=== PATIENT | female | born 1985 | race Caucasian/White ===

== ENCOUNTER 2017-04-20 11:58 | Emergency (ER) | payer BC, MEDICAID ==
--- NOTE | 2017-04-20 12:24 | ER Document Report ---
ED Medical Screen (RME) - General Chief Complaint: Dizziness Stated Complaint: DIZZY Time Seen by Provider: 04/20/17 12:22 Notes: Patient complains of severe vertigo both with lying and standing. She states it is worse with walking. She states she has had this on and off for several years but is never had any workup performed for it. TRAVEL OUTSIDE OF THE [place] IN LAST 30 DAYS: No - Related Data Allergies/Adverse Reactions: amoxicillin trihydrate [From Augmentin] Allergy (Severe, Verified 04/20/17 12:01 ) rash erythromycin base [Erythromycin Base] Allergy (Severe, Verified 04/20/17 12:01) breathing latex [Latex] Allergy (Severe, Verified 04/20/17 12:01) rash Past Medical History - Social History Drug Abuse: None - Past Medical History Cardiac Medical History: Denies: Hx Coronary Artery Disease, Hx Heart Attack, Hx Hypertension Pulmonary Medical History: Reports: Hx Asthma - INDUCED BY SPORTS, Hx Bronchitis Denies: Hx COPD, Hx Pneumonia Neurological Medical History: Denies: Hx Cerebrovascular Accident, Hx Seizures Endocrine Medical History: Comment Only: Hx Diabetes Mellitus Type 2 - Gestational diabetes Renal/ Medical History: Reports: Hx Ectopic - 2015, Hx Pelvic Inflammatory Disease. Denies: Hx Peritoneal Dialysis Musculoskeltal Medical History: Denies Hx Arthritis Past Surgical History: Reports: Hx Section - x2, Hx Tubal Ligation - 2009. Denies: Hx Hysterectomy, Hx Pacemaker - Immunizations Hx Diphtheria, Pertussis, Tetanus Vaccination: No Physical Exam - Vital signs Vitals: Temp Pulse Resp BP Pulse Ox 98.4 F 86 14 121/91 H 100 04/20/17 12:05 04/20/17 12:05 04/20/17 12:05 04/20/17 12:05 04/20/17 12:05 Course - Vital Signs Vital signs: Temp Pulse Resp BP Pulse Ox 98.4 F 86 14 121/91 H 100 04/20/17 12:05 04/20/17 12:05 04/20/17 12:05 04/20/17 12:05 04/20/17 12:05
--- NOTE | 2017-04-20 13:00 | RADIOLOGY REPORT (SQ) ---
EXAM DESCRIPTION: CT HEAD WITHOUT COMPLETED DATE/TIME: 04/20/2017 12:36 pm REASON FOR STUDY: severe vertigo COMPARISON: None. TECHNIQUE: Axial images acquired through the brain without intravenous contrast. Images reviewed wi th bone, brain and subdural windows. Images stored on PACS. All CT scanners at this facility use dose modulation, iterative reconstruction, and/or weight based d osing when appropriate to reduce radiation dose to as low as reasonably achievable (ALARA). [facility]: Dose Right [facility]: CareDose [facility]: Dose Right [facility]: Teradose 4D [facility]: [employer] RADIATION DOSE: CT Rad equipment meets quality standard of care and radiation dose reduction techniq ues were employed. CTDIvol: 64.6 mGy. DLP: 1163 mGy-cm. mGy. LIMITATIONS: None. FINDINGS: VENTRICLES: Normal size and contour. CEREBRUM: No masses. No hemorrhage. No midline shift. No evidence for acute infarction. Normal gra y/white matter differentiation. No areas of low density in the white matter. CEREBELLUM: No masses. No hemorrhage. No alteration of density. No evidence for acute infarction. EXTRAAXIAL SPACES: No fluid collections. No masses. ORBITS AND GLOBE: No intra- or extraconal masses. Normal contour of globe without masses. CALVARIUM: No fracture. PARANASAL SINUSES: No fluid or mucosal thickening. SOFT TISSUES: No mass or hematoma. OTHER: No other significant finding. IMPRESSION: NORMAL BRAIN CT WITHOUT CONTRAST. EVIDENCE OF ACUTE STROKE: NO. COMMENT: Quality ID # [id number]: Final reports with documentation of one or more dose reduction techniques (e.g., Automated exposure control, adjustment of the mA and/or kV according to patient size, use of iterative reconstruction technique) TECHNICAL DOCUMENTATION: JOB ID: [id number] [employer]- All Rights Reserved
[2017-04-20 13:13] LABS: ABSOLUTE BASOPHILS # (AUTO) 0.1 10^3/uL (0.0-0.2); ABSOLUTE EOSINOPHILS # (AUTO) 0.4 10^3/uL (0.0-0.6); ABSOLUTE MONOCYTES (AUTO) 0.3 10^3/uL (0.1-1.4); ABSOLUTE NEUT (AUTO) 4.6 10^3/uL (1.7-8.2); BASOPHILS % (AUTO) 0.7 % (0-2); EOSINOPHILS % (AUTO) 5.6 % (0-6); HEMOGLOBIN 15.3 g/dL (12.0-15.5); HGB HCT DIFFERENCE 1.9; LYMPHOCYTES % (AUTO) 27.1 % (13-45); MEAN CORPUSCULAR HEMOGLOBIN 29.4 pg (27.0-33.4); MEAN CORPUSCULAR HGB CONC 34.7 g/dL (32.0-36.0); MEAN CORPUSCULAR VOLUME 85 fl (80-97); MONOCYTES % (AUTO) 4.6 % (3-13); RED CELL DISTRIBUTION WIDTH 13.6 % (11.5-14.0); WHITE BLOOD COUNT 7.3 10^3/uL (4.0-10.5)
[2017-04-20 13:19] LABS: APPEARANCE,URINE CLEAR; BILIRUBIN,URINE NEGATIVE (NEGATIVE); GLUCOSE, URINE NEGATIVE (NEGATIVE); KETONES,URINE NEGATIVE (NEGATIVE); LEUKOCYTE ESTERASE,URINE NEGATIVE (NEGATIVE); NITRITE,URINE NEGATIVE (NEGATIVE); PROTEIN,URINE NEGATIVE (NEGATIVE); URINE SPECIFIC GRAVITY 1.003; UROBILINOGEN,URINE NEGATIVE mg/dL (<2.0)
[2017-04-20 13:37] LABS: ALANINE AMINOTRANSFERASE 29 U/L (9-52); ALBUMIN 4.9 g/dL (3.5-5.0); ALKALINE PHOSPHATASE 69 U/L (38-126); ANION GAP 15 (5-19); ASPARTATE AMINO TRANSFERASE 21 U/L (14-36); BILIRUBIN,DIRECT 0.2 mg/dL (0.0-0.4); BILIRUBIN,TOTAL 0.5 mg/dL (0.2-1.3); BLOOD UREA NITROGEN 9 mg/dL (7-20); CALCIUM 9.4 mg/dL (8.4-10.2); CARBON DIOXIDE 27 mmol/L (22-30); CHLORIDE 102 mmol/L (98-107); CREATININE RESULT 0.77 mg/dL (0.52-1.25); GLUCOSE 128 mg/dL (75-110); POTASSIUM 3.6 mmol/L (3.6-5.0); SODIUM 143.5 mmol/L (137-145)
[2017-04-20] MEDS ORDERED: ONDANSETRON ODT 4 MG TAB (6 TAB/DSPK) PO PRN (15:06)
[2017-04-20] MEDS ORDERED: MECLIZINE HCL 25 MG TABLET PO ONE (15:06)
--- NOTE | 2017-04-20 15:13 | ER Document Report ---
ED Dizziness/Weakness - General Chief Complaint: Dizziness Stated Complaint: DIZZY Time Seen by Provider: 04/20/17 12:22 Mode of Arrival: Ambulatory Information source: Patient TRAVEL OUTSIDE OF THE [place] IN LAST 30 DAYS: No - HPI Patient complains to provider of: Dizziness Onset: Other - 3 days Onset/Duration: Intermittent Quality of pain: No pain Severity: Mild Pain Level: 1 Context: Vertigo Associated symptoms: Dizzy. denies: Chest pain, Confused, Diarrhea, Ear pain, Almost fainted, Less responsive, Lightheaded, Loss of motor function, Loss of sensation, Nausea, Palpitations, Ringing/roaring in ear, Short of breath, Sleeping more, Sweating, Vertigo, Vomiting, Weak all over Exacerbated by: Change in position Baseline gait: Walks w/o assistance Notes: lmp x 5 days ago. denies any tingling down bilateral upper and lower extremities. Denies any trauma. Denies any chest pain, shortness of breath, vomiting, diarrhea, abdominal pain, pelvic pain. Denies any seizures. Reports recent URI that has become progressively better. 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 Lives with: Family, Spouse/Significant other Family History: Reviewed & Not Pertinent, Hypertension Patient has suicidal ideation: No Patient has homicidal ideation: No - Past Medical History Cardiac Medical History: Reports: None Denies: Hx Coronary Artery Disease, Hx Heart Attack, Hx Hypertension Pulmonary Medical History: Reports: Hx Asthma - INDUCED BY SPORTS, Hx Bronchitis Denies: Hx COPD, Hx Pneumonia Neurological Medical History: Denies: Hx Cerebrovascular Accident, Hx Seizures Endocrine Medical History: Comment Only: Hx Diabetes Mellitus Type 2 - Gestational diabetes Renal/ Medical History: Reports: Hx Ectopic - 2015, Hx Pelvic Inflammatory Disease. Denies: Hx Peritoneal Dialysis Musculoskeltal Medical History: Denies Hx Arthritis Past Surgical History: Reports: Hx Section - x2, Hx Tubal Ligation. Denies: Hx Hysterectomy, Hx Pacemaker - Immunizations Hx Diphtheria, Pertussis, Tetanus Vaccination: No Review of Systems - Review of Systems Constitutional: See HPI EENT: No symptoms reported Cardiovascular: No symptoms reported Respiratory: No symptoms reported Gastrointestinal: No symptoms reported Genitourinary: No symptoms reported Female Genitourinary: No symptoms reported Musculoskeletal: No symptoms reported Skin: No symptoms reported -: Yes All other systems reviewed and negative Physical Exam - Vital signs Vitals: Temp Pulse Resp BP Pulse Ox 98.4 F 86 14 121/91 H 100 04/20/17 12:05 04/20/17 12:05 04/20/17 12:05 04/20/17 12:05 04/20/17 12:05 Interpretation: Normal - General General appearance: Appears well - HEENT Head: Normocephalic Conjunctiva: Normal Cornea: Normal Pupils: PERRL Ears: Normal External canal: Normal Tympanic membrane: Bulging Sinus: Normal Nasal: Other - boggy turbinates Mouth/Lips: Normal Mucous membranes: Normal Pharynx: Normal Neck: Normal - Respiratory Respiratory status: No respiratory distress Chest status: Nontender Breath sounds: Normal Chest palpation: Normal - Cardiovascular Rhythm: Regular Heart sounds: Normal auscultation Murmur: No Normal capillary refill: Yes - Abdominal Inspection: Normal Distension: No distension Bowel sounds: Normal Tenderness: Nontender Organomegaly: No organomegaly - Neurological Neuro grossly intact: Yes Cognition: Normal Orientation: AAOx4 Joshua Coma Scale Eye Opening: Spontaneous Thornton Coma Scale Verbal: Oriented Thornton Coma Scale Motor: Obeys Commands Joshua Coma Scale Total: 15 Speech: Normal Cranial nerves: Normal Cerebellar coordination: Normal Additional motor exam normals: 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 + horizontal nystagmus Course - Re-evaluation Re-evalutation: After performing a Medical Screening Examination, I estimate there is LOW risk for INTRACRANIAL HEMORRHAGE, ISCHEMIC CVA, MALIGNANT DYSRHYTHMIA, ACUTE CORONARY SYNDROME, MENINGITIS, PULMONARY EMBOLISM, or SEPSIS thus I consider the discharge disposition reasonable. I have reevaluated this patient multiple times and no significant life threatening changes are noted. The patient and I have discussed the diagnosis and risks, and we agree with discharging home with close follow-up with the understanding that symptoms and presentations can change. We also discussed returning to the Emergency Department immediately if new or worsening symptoms occur. We have discussed the symptoms which are most concerning (e.g., changing or worsening pain, weakness, vomiting, fever) that necessitate immediate return. - Vital Signs Vital signs: Temp Pulse Resp BP Pulse Ox 98.4 F 80 17 110/80 99 04/20/17 12:05 04/20/17 15:33 04/20/17 14:31 04/20/17 15:33 04/20/17 14:31 - Laboratory Result Diagrams: 04/20/17 12:54 04/20/17 12:54 Laboratory results interpreted by me: 04/20/17 12:54 Glucose 128 H - Diagnostic Test Radiology reviewed: Reports reviewed - CT head, NAD per rad - EKG Interpretation by Me EKG shows normal: Sinus rhythm Rate: Normal Rhythm: NSR Discharge - Discharge Clinical Impression: Benign positional vertigo Qualifiers: Laterality: bilateral Qualified Code(s): H81.13 - Benign paroxysmal vertigo, bilateral Clinical Impression: (Ruled Out): Vertigo due to cerebrovascular disease Disposition: HOME, SELF-CARE Instructions: Antinausea Medication ([facility]), Dizziness ([facility]), Meclizine ([facility]), Vertigo ([facility]) Additional Instructions: take medications as directed follow up with pcp within 24 hours increase oral fluids return to ER if signs and symptoms worsen Prescriptions: Meclizine HCl 25 mg PO Q12H #9 tab.chew Ondansetron [Zofran Odt 4 mg Tablet] 4 mg PO Q12H PRN #10 tab.rapdis PRN Reason: Forms: Return to Work
[2017-04-20 15:34] VITALS: BP 110/80
--- NOTE | 2017-04-20 19:49 | EKG REPORT ---
SEVERITY:- NORMAL ECG - SINUS RHYTHM : Confirmed by: Grey Tidwell MD 20-Apr-2017 19:48:33
== END 2017-04-20 15:50 | disposition home or self-care (01) ==
LOC: ER 11:58
DX: H81.13 Benign paroxysmal vertigo, bilateral (principal); Z91.040 Latex allergy status; Z88.0 Allergy status to penicillin; Z88.3 Allergy status to other anti-infective agents; Z98.51 Tubal ligation status
CPT/HCPCS: 36415; 70450; 80053; 81001; 81025; 85025; 93005; 93010; 99284

== ENCOUNTER 2019-10-26 15:55 | Outpatient (CLI) | payer BC, MEDICAID ==
[2019-10-26 17:05] LABS: APPEARANCE,URINE CLEAR; BILIRUBIN,URINE NEGATIVE (NEGATIVE); COLOR,URINE STRAW; GLUCOSE, URINE NEGATIVE (NEGATIVE); KETONES,URINE NEGATIVE (NEGATIVE); LEUKOCYTE ESTERASE,URINE NEGATIVE (NEGATIVE); NITRITE,URINE NEGATIVE (NEGATIVE); PROTEIN,URINE NEGATIVE (NEGATIVE); URINE SPECIFIC GRAVITY 1.008; UROBILINOGEN,URINE NEGATIVE mg/dL (<2.0)
[2019-10-26 17:21] LABS: URINE AMPHETAMINES SCREEN NEGATIVE; URINE BARBITURATES SCREEN NEGATIVE; URINE BENZODIAZEPINES SCREEN NEGATIVE; URINE COCAINE SCREEN NEGATIVE; URINE MARIJUANA (THC) SCREEN NEGATIVE; URINE METHADONE SCREEN NEGATIVE; URINE PHENCYCLIDINE SCREEN NEGATIVE
[2019-10-26 17:24] LABS: BACTERIA (WET MOUNT) 4+ BACTERIA SEEN; EPITHELIALS (WET MOUNT) 4+ EPITHELIALS SEEN; RBCS (WET MOUNT) 1+ RBCS SEEN; WBCS (WET MOUNT) 2+ WBCS SEEN; YEAST (WET MOUNT) BUDDING YEAST SEEN
--- NOTE | 2019-10-26 17:46 | RADIOLOGY REPORT (SQ) ---
EXAM DESCRIPTION: U/S OB LIMITED IMAGES COMPLETED DATE/TIME: 10/26/2019 5:32 pm REASON FOR STUDY: 24wga with cramping and spotting COMPARISON: None. TECHNIQUE: Limited transabdominal grayscale ultrasound for evaluation of specific requested obstetri fiona parameters. LIMITATIONS: None. FINDINGS: CERVICAL LENGTH: 3.5 cm. Closed. FINN: 15.2 cm. FHR: 144 beats per minute. PRESENTATION: Breech PLACENTA: Anterior ANATOMY: Not assessed OTHER: Gestation by ultrasound of 27 weeks 6 days. IMPRESSION: LIMITED OBSTETRICAL ULTRASOUND WITH MEASURED PARAMETERS DELINEATED ABOVE. Trimester of : Second trimester - 13 weeks 1 day to 27 weeks 6 days. TECHNICAL DOCUMENTATION: JOB ID: [id number] 2010 [email or web address]- All Rights Reserved Reading location - IP/workstation name: [email or web address]
[2019-10-26 19:02] LABS: CHLAM PCR NOT DETECTED (NOT DETECT)
[2019-10-26] MEDS ORDERED: FLUCONAZOLE 100 MG TABLET ONE (19:09)
[2019-10-27] MEDS ORDERED: FLUCONAZOLE 100 MG TABLET PO ONE (10:00)
== END 2019-10-26 19:28 | disposition home or self-care (01) ==
LOC: LC 15:55
PROVIDERS: ATTEND Student in an Organized Health Care Education/Training Program
DX: O26.852 Spotting complicating pregnancy, second trimester (principal); O26.892 Other specified pregnancy related conditions, second trimester; R10.9 Unspecified abdominal pain; Z3A.27 27 weeks gestation of pregnancy
CPT/HCPCS: 76815; 80307; 81001; 87210; 87491; 87591

== ENCOUNTER 2019-12-12 09:29 | Outpatient (CLI) | payer BC, MEDICAID ==
--- NOTE | 2019-12-12 10:08 | Non Stress Test Report ---
Non Stress Test Datetime Report Generated by CPN: 12/12/2019 10:08 DEMOGRAPHIC EGA NST: 34.4 VITAL SIGNS Temperature - NST: 98.9 Pulse - NST: 109 RESP - NST: 16 NBPSYS NST: 122 NBPDIA NST: 71 MONITORING Monitor Explained: Monitor Explained; Test Explained; Patient Verbalized Understanding Time on Monitor: 12/12/2019 09:41 Time off Monitor: 12/12/2019 10:02 NST Duration: 21 NST INTERVENTIONS NST Interventions: PO Hydration; Reposition Patient Physician Notified NST: Birdie Roy, CNM BABY A: [id number] BABY A Movement : Present Contraction Frequency : 0 FHR Baseline : 155 Accelerations : 15X15 Decelerations : None Variability : Moderate 6-25bpm NST Review: Meets Criteria for Reactive NST NST Review and Verified By : JONELLE Perez Results: Reactive NST REPORT Report Trigger: Send Report
== END 2019-12-12 10:12 | disposition home or self-care (01) ==
LOC: LC 09:29
PROVIDERS: ATTEND Obstetrics & Gynecology Gynecology
DX: O36.8130 Decreased fetal movements, third trimester, not applicable or unspecified (principal); O24.419 Gestational diabetes mellitus in pregnancy, unspecified control; Z3A.34 34 weeks gestation of pregnancy; Z88.1 Allergy status to other antibiotic agents; Z91.040 Latex allergy status
CPT/HCPCS: 59025

== ENCOUNTER 2019-12-19 09:17 | Emergency (ER) | payer BC, MEDICAID ==
[2019-12-19 10:17] LABS: APPEARANCE,URINE CLEAR; BILIRUBIN,URINE NEGATIVE (NEGATIVE); COLOR,URINE COLORLESS; GLUCOSE, URINE NEGATIVE (NEGATIVE); KETONES,URINE NEGATIVE (NEGATIVE); LEUKOCYTE ESTERASE,URINE NEGATIVE (NEGATIVE); NITRITE,URINE NEGATIVE (NEGATIVE); PROTEIN,URINE NEGATIVE (NEGATIVE); URINE SPECIFIC GRAVITY 1.002; UROBILINOGEN,URINE NEGATIVE mg/dL (<2.0)
--- NOTE | 2019-12-19 12:18 | ER Document Report ---
Entered by LIBIA DENISE SCRIBE 12/19/19 1113 Acting as scribe for:CARLOS MARTINEZ MD ED General - General Chief Complaint: Abdominal Cramping Stated Complaint: FEVER,CHILLS Time Seen by Provider: 12/19/19 11:13 Primary Care Provider: ELVIN RETANA MD [ACTIVE STAFF] - Follow up as needed Mode of Arrival: Ambulatory Information source: Patient Notes: This 35.4 week old 34 year old female patient presents to the emergency department today with complaints of "low grade fevers" that she describes as hot flashes with "feeling clammy" after moving. She reports that she was at her OB doctor today and she complained of this so she was referred to her PCP. Her PCP saw her and sent her here for "the baby's heart rate spiking and high blood pressure". The huffman rate was 170 and she had pressures of 138/98. She reports that the "baby's heart rate racing" is present until she lays down for several hours. TRAVEL OUTSIDE OF THE [place] IN LAST 30 DAYS: No - Related Data Allergies/Adverse Reactions: amoxicillin trihydrate [From Augmentin] Allergy (Severe, Verified 12/14/19 09:54) rash erythromycin base [Erythromycin Base] Allergy (Severe, Verified 12/14/19 09:54) breathing latex [Latex] Allergy (Severe, Verified 12/14/19 09:54) rash Home Medications: Glipizide, Progesterone Past Medical History - General Information source: Patient - Social History Smoking Status: Never Smoker Cigarette use (# per day): No Frequency of alcohol use: None Drug Abuse: None Lives with: Family Family History: Reviewed & Not Pertinent, Hypertension Pulmonary Medical History: Reports: Hx Asthma - INDUCED BY SPORTS, Hx Bronchitis Endocrine Medical History: Reports: Hx Diabetes Mellitus Type 2 - Gestational diabetes Renal/ Medical History: Reports: Hx Ectopic - 2015, Hx Pelvic Inflammatory Disease Past Surgical History: Reports: Hx Section - x2, Hx Tubal Ligation - Immunizations Hx Diphtheria, Pertussis, Tetanus Vaccination: No Review of Systems - Review of Systems Constitutional: See HPI, Fever - "low grade fevers", hot flashes, feeling clammy with movement EENT: No symptoms reported Cardiovascular: No symptoms reported Respiratory: denies: Short of breath Gastrointestinal: denies: Nausea, Vomiting Genitourinary: No symptoms reported Female Genitourinary: See HPI, - approximately 35 weeks Musculoskeletal: No symptoms reported Skin: No symptoms reported Hematologic/Lymphatic: No symptoms reported Neurological/Psychological: No symptoms reported -: Yes All other systems reviewed and negative Physical Exam - Vital signs Vitals: Temp Pulse Resp BP Pulse Ox 99.0 F 96 18 121/82 100 12/19/19 09:28 12/19/19 09:28 12/19/19 09:28 12/19/19 09:28 12/19/19 09:28 - Notes Notes: Physical Exam: General: Alert, gravid female. HEENT: Normocephalic. Atraumatic. PERRL. Extraocular movements intact. Oropharynx clear. Neck: Supple. Non-tender. Respiratory: No respiratory distress. Clear and equal breath sounds bilaterally. Cardiovascular: Regular rate and rhythm. Abdominal: Gravid female. No distension. Normal Bowel Sounds. Back: No gross abnormalities. Extremities: Moves all four extremities. Upper extremities: Normal inspection. Normal ROM. Lower extremities: Normal inspection. No edema. Normal ROM. Neurological: Normal cognition. AAOx4. Normal speech. Psychological: Normal affect. Normal Mood. Skin: Warm. Dry. Normal color. Course - Re-evaluation Re-evalutation: 12/19/19 14:27 An OB ultrasound showed the estimated gestational age of 33 weeks 6 days, heart rate 163 bpm. Amniotic fluid index is normal at 11.5 cm. The L&D nurses came down and did a stress test and that was normal. 12/19/19 14:29 The patient was evaluated during the global COVID-19 pandemic and that diagnosis was suspected/considered upon their initial presentation. Their evaluation, treatment and testing was consistent with current guidelines for patients who present with complaints or symptoms that may be related to COVID-19. - Vital Signs Vital signs: Temp Pulse Resp BP Pulse Ox 99.0 F 96 18 121/82 100 12/19/19 09:28 12/19/19 09:28 12/19/19 09:28 12/19/19 09:28 12/19/19 09:28 - Laboratory Result Diagrams: 12/19/19 11:55 12/19/19 11:55 Laboratory results interpreted by me: 12/19/19 12/19/19 11:55 11:55 WBC 14.7 H RDW 14.9 H Absolute Neuts (auto) 11.4 H Creatinine 0.45 L Glucose 67 L Discharge - Discharge Clinical Impression: Viral syndrome, Third trimester , Encounter for laboratory testing for COVID-19 virus Condition: Stable Disposition: HOME, SELF-CARE Instructions: COVID-19 Guidance for Persons Under Investigation Additional Instructions: Viral Syndrome The physician has diagnosed a viral infection. Viruses not only cause "colds," but can cause many different symptoms including generalized aching, fever, headache, cough, diarrhea, nausea, vomiting, and fatigue. The treatment, for the most part, is simply relief of symptoms. This means that antibiotics are usually not given. Rest, fluids, pain medications and, occasionally, medication for the specific symptoms that are most bothersome will be prescribed. Use good handwashing to avoid passing the virus to others. Shared toys should be cleaned with disinfectant. Clean the toilets, sinks, and counter surfaces in bathrooms. Launder clothing in hot water. Contact the physician if you develop any new or unusual symptoms such as severe headache, stiff neck, high fever, chest pain, productive cough, or shortness of breath. You should be rechecked if you don't see marked improvement within seven to 10 days. The symptoms you described today are very suspicious for a viral syndrome. You were tested for the COVID virus, however many viral illnesses will cause these symptoms. The ultrasound was unremarkable as was the stress test. 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 You should self isolate at home until you get the COVID test results. RETURN TO THE EMERGENCY ROOM IF ANY NEW OR WORSENING SYMPTOMS. Referrals: ELVIN RETANA MD [ACTIVE STAFF] - Follow up as needed I personally performed the services described in the documentation, reviewed and edited the documentation which was dictated to the scribe in my presence, and it accurately records my words and actions.
[2019-12-19 12:27] LABS: ABSOLUTE EOSINOPHILS # (AUTO) 0.2 10^3/uL (0.0-0.6); ABSOLUTE LYMPHOCYTES (AUTO) 1.9 10^3/uL (0.5-4.7); ABSOLUTE MONOCYTES (AUTO) 1.2 10^3/uL (0.1-1.4); ABSOLUTE NEUT (AUTO) 11.4 10^3/uL (1.7-8.2); BASOPHILS % (AUTO) 0.3 % (0-2); EOSINOPHILS % (AUTO) 1.2 % (0-6); HEMATOCRIT 37.8 % (36.0-47.0); HEMOGLOBIN 13.1 g/dL (12.0-15.5); LYMPHOCYTES % (AUTO) 13.1 % (13-45); MEAN CORPUSCULAR HEMOGLOBIN 29.8 pg (27.0-33.4); MEAN CORPUSCULAR HGB CONC 34.5 g/dL (32.0-36.0); MEAN CORPUSCULAR VOLUME 86 fl (80-97); MONOCYTES % (AUTO) 7.9 % (3-13); PLATELET COUNT 305 10^3/uL (150-450); RED BLOOD COUNT 4.38 10^6/uL (3.72-5.28); RED CELL DISTRIBUTION WIDTH 14.9 % (11.5-14.0); SEGMENTED NEUTROPHILS % (AUTO) 77.5 % (42-78); TOTAL CELLS COUNTED % (AUTO) 100 %; WHITE BLOOD COUNT 14.7 10^3/uL (4.0-10.5)
[2019-12-19 12:43] LABS: ALBUMIN 3.7 g/dL (3.5-5.0); ALKALINE PHOSPHATASE 124 U/L (38-126); ANION GAP 8 (5-19); ASPARTATE AMINO TRANSFERASE 24 U/L (14-36); BILIRUBIN,TOTAL 0.5 mg/dL (0.2-1.3); BLOOD UREA NITROGEN 8 mg/dL (7-20); CALCIUM 9.3 mg/dL (8.4-10.2); CARBON DIOXIDE 23 mmol/L (22-30); CHLORIDE 106 mmol/L (98-107); POTASSIUM 3.9 mmol/L (3.6-5.0); TOTAL PROTEIN 7.1 g/dL (6.3-8.2)
[2019-12-19 12:50] LABS: GLUCOSE 67 mg/dL (75-110)
--- NOTE | 2019-12-19 13:40 | RADIOLOGY REPORT (SQ) ---
EXAM DESCRIPTION: U/S OB LIMITED IMAGES COMPLETED DATE/TIME: 12/19/2019 1:06 pm REASON FOR STUDY: COVID symptoms, increased heart rate, COMPARISON: 10/26/2019 TECHNIQUE: Limited transabdominal grayscale ultrasound for evaluation of specific requested obstetri fiona parameters. LIMITATIONS: None. FINDINGS: CERVICAL LENGTH: 3.3 cm Closed. FINN: 11.5 cm. FHR: 163 beats per minute. PRESENTATION: Cephalic. PLACENTA: Anterior location. ANATOMY: Not assessed OTHER: Estimated gestational age is 33 weeks 6 days. IMPRESSION: LIMITED OBSTETRICAL ULTRASOUND WITH MEASURED PARAMETERS DELINEATED ABOVE. Trimester of : Third trimester - 28 weeks to delivery. TECHNICAL DOCUMENTATION: JOB ID: [id number] 2010 [employer]- All Rights Reserved Reading location - IP/workstation name: [email or web address]
[2019-12-19 14:42] VITALS: BP 117/73
== END 2019-12-19 14:47 | disposition home or self-care (01) ==
LOC: ER 09:17
DX: O98.513 Other viral diseases complicating pregnancy, third trimester (principal); B34.9 Viral infection, unspecified; O24.913 Unspecified diabetes mellitus in pregnancy, third trimester; O26.893 Other specified pregnancy related conditions, third trimester; R50.9 Fever, unspecified; Z3A.35 35 weeks gestation of pregnancy; Z79.84 Long term (current) use of oral hypoglycemic drugs; Z79.899 Other long term (current) drug therapy; Z20.828 Contact with and (suspected) exposure to other viral communicable diseases; Z88.0 Allergy status to penicillin; Z88.1 Allergy status to other antibiotic agents; Z91.041 Radiographic dye allergy status
CPT/HCPCS: 99284; 59025; 36415; 87040; 85025; 87635; 80053; 81001; 76815; C9803

== ENCOUNTER 2019-12-26 09:45 | Outpatient (CLI) | payer BC, MEDICAID | END 2019-12-26 10:56 | disposition home or self-care (01) | LOC: LC 09:45 | PROVIDERS: ATTEND Obstetrics & Gynecology | DX: O26.893 Other specified pregnancy related conditions, third trimester (principal); M54.9 Dorsalgia, unspecified; Z3A.36 36 weeks gestation of pregnancy | CPT/HCPCS: 59025 ==

== ENCOUNTER 2020-01-03 18:20 | Inpatient (IN) | payer BC, MEDICAID ==
[2020-01-03 18:55] LABS: APPEARANCE,URINE CLEAR; BILIRUBIN,URINE NEGATIVE (NEGATIVE); COLOR,URINE STRAW; GLUCOSE, URINE NEGATIVE (NEGATIVE); KETONES,URINE NEGATIVE (NEGATIVE); LEUKOCYTE ESTERASE,URINE NEGATIVE (NEGATIVE); NITRITE,URINE NEGATIVE (NEGATIVE); PROTEIN,URINE NEGATIVE (NEGATIVE); URINE SPECIFIC GRAVITY 1.004; UROBILINOGEN,URINE NEGATIVE mg/dL (<2.0)
[2020-01-03] MEDS ORDERED: RINGERS SOLUTION,LACTATED 1,000 ML IV PRN ×2 (19:08→20:31)
[2020-01-03 19:14] LABS: URINE AMPHETAMINES SCREEN NEGATIVE; URINE BARBITURATES SCREEN NEGATIVE; URINE BENZODIAZEPINES SCREEN NEGATIVE; URINE COCAINE SCREEN NEGATIVE; URINE MARIJUANA (THC) SCREEN NEGATIVE; URINE METHADONE SCREEN NEGATIVE; URINE PHENCYCLIDINE SCREEN NEGATIVE
[2020-01-03] MEDS ORDERED: CITRIC ACID/SODIUM CITRATE ORAL SOLN 15 ML UDCUP PO PRN (19:27)
--- NOTE | 2020-01-03 19:32 | Admission Physical ---
Datetime Report Generated by CPN: 01/03/2020 19:31 CURRENT ADMISSION Chief Complaint: Uterine Contractions Chief Complaint Other: Contractions since 4 pm every 3-4 minutes. Painful and breathing through. Admit Impression : Term, Intrauterine ; Active Labor; Repeat Section Admit Plan: Admit to Unit; Initiate Section Protocol ALLERGIES Medication Allergies: Yes Medication Allergies: amoxicillin trihydrate/SV/rash (01/03/2020); erythromycin base/SV/breathing (01/03/2020); latex/SV/rash (01/03/2020) Latex: Latex Allergies Food Allergies: none Environmental Allergies: pollen OBSTETRICAL HISTORY EDC: 01/19/2020 00:00 : 11 Para: 4 Term: 1 : 2 SAB: 7 IAB: 0 Ectopic: 1 Livin Cesareans: 2 VBACs: 0 Multiple Births: 1 Gestational Diabetes: Yes Rh Sensitization: No Incompetent Cervix: No ZOILA: No Infertility: No ART Treatment: No Uterine Anomaly: Yes IUGR: Unknown Hx Previous C/S: Yes Macrosomia: No Hx Loss/Stillborn: No PIH: No Hx : No Placenta Previa/Abruption: No Depression/PP Depression: Yes PTL/PROM: Yes Post Hemorrhage: No Current Procedures: Ultrasound Obstetrical History Comments: G11- current; GDM on glyburide 37.5 weeks 04/14/2006 Primary C/s Twins mo/mo GDM 07/18/2009 36 weeks PTL with repeat c/s pt states 6 SABS and 1 ectopic SEE RECORDS Alcohol: No Marijuana : No Cocaine: No Other Illicit Drugs: No Cigarettes: Former Smoker. [id number] MEDICAL HISTORY Diabetes: Yes Diabetes Type: Gestational Diabetes Blood Transfusion: No Pulmonary Disease (Asthma, TB): Yes Breast Disease: No Hypertension: No Warp Bleaching Vat Tender Surgery: No Heart Disease: No Hosp/Surgery: Yes Autoimmune Disorder: No Anesthetic Complications: No Kidney Disease: No Abnormal Pap Smear: No Neuro/Epilepsy: No Psychiatric Disorders: No Other Medical Diseases: No Hepatitis/Liver Disease: No Significant Family History: No Varicosities/Phlebitis: No Trauma/Violence : No Thyroid Dysfunction: No Medical History Comments: GDM - glyburide, asthma, childbirth, c/s x2, BTL and BTL reversal, PPD INFECTIOUS HISTORY Gonorrhea: No Genital Herpes: No Chlamydia: No Tuberculosis: No Syphilis: No Hepatitis: No HIV/AIDS Exposure: No Rash or Viral Illness: No HPV: No PHYSICAL EXAM General: Normal HEENT: Normal Neurologic: Normal Thyroid: Normal Heart: Normal Lungs: Normal Breast: Normal Back: Normal Abdomen: Normal Genitourinary Exam: Normal Extremities: Normal DTRs: Normal Pelvic Type: Adequate Vital Signs: Reviewed VAGINAL EXAM Dilatation: 2 Effacement: 80 Station: -3 Contraction Comments: regular MEMBRANES Membranes: Intact FETUS A EGA: 37.5 Monitoring: External US FHR- Baseline: 165 Variability: Moderate 6-25bpm Accelerations: 15X15 Decelerations: Late FHR Category: Category II Presentation: Vertex Admit Comment: at 37.5 wks EGA in active labor. She has hx of in G1 but then she has had 3 sections since that time. Hx of bilateral tubal ligation and reversal -Admit to LDR -NPO and IVFs> LR bolus 1 liter and then continue at 125 cc/hr afterwards -Clindamycin 900 mg IV prior to OR with gentamycin -Plan for repeat section due to labor and late decels on heart tracing. -Risks, benefits and alternatives reviewed. PLANS FOR LABOR AND DELIVERY Labor and Delivery: None Pain Management: Spinal Feeding Preference: Breast Benefit of Breast Feed Discussed: Yes Circumcision: No INFORMED CONSENT Informed Consent Obtained: Section Delivery; Risks, Benefits and Alternatives Discussed Signature: with User ID: [email or web address] : with User ID: [email or web address]
[2020-01-03] MEDS ORDERED: CLINDAMYCIN 900 MG/D5W RTU 900 MG/50 ML RTUPB IV ONE (20:13)
[2020-01-03] MEDS ORDERED: CITRIC ACID/SODIUM CITRATE ORAL SOLN 15 ML UDCUP ONE (20:13)
[2020-01-03 20:16] LABS: ABSOLUTE EOSINOPHILS # (AUTO) 0.2 10^3/uL (0.0-0.6); ABSOLUTE LYMPHOCYTES (AUTO) 2.5 10^3/uL (0.5-4.7); ABSOLUTE MONOCYTES (AUTO) 0.6 10^3/uL (0.1-1.4); ABSOLUTE NEUT (AUTO) 6.5 10^3/uL (1.7-8.2); BASOPHILS % (AUTO) 0.3 % (0-2); EOSINOPHILS % (AUTO) 2.2 % (0-6); HEMATOCRIT 37.4 % (36.0-47.0); HEMOGLOBIN 12.9 g/dL (12.0-15.5); LYMPHOCYTES % (AUTO) 25.2 % (13-45); MEAN CORPUSCULAR HEMOGLOBIN 29.8 pg (27.0-33.4); MEAN CORPUSCULAR HGB CONC 34.4 g/dL (32.0-36.0); MEAN CORPUSCULAR VOLUME 87 fl (80-97); MONOCYTES % (AUTO) 6.4 % (3-13); PLATELET COUNT 259 10^3/uL (150-450); RED BLOOD COUNT 4.31 10^6/uL (3.72-5.28); SEGMENTED NEUTROPHILS % (AUTO) 65.9 % (42-78); TOTAL CELLS COUNTED % (AUTO) 100 %; WHITE BLOOD COUNT 9.9 10^3/uL (4.0-10.5)
[2020-01-03] MEDS ORDERED: HYDROMORPHONE HCL INJ/PF 2 MG/ML AMPULE IV PRN (20:31)
[2020-01-03] MEDS ORDERED: SIMETHICONE 80 MG TAB.CHEW PO PRN (20:31)
[2020-01-03] MEDS ORDERED: PROMETHAZINE HCL INJ 25 MG/1 ML VIAL IV PRN (20:31)
[2020-01-03] MEDS ORDERED: OXYTOCIN/0.9 % SODIUM CHLORIDE 30 UNIT/500 ML RTUINJ IV PRN (20:31)
[2020-01-03] MEDS ORDERED: ACETAMINOPHEN 325 MG TABLET PO PRN (20:31)
[2020-01-03] MEDS ORDERED: DIPH/PERTUSS(ACELL)/TETANUS VAC/PF 0.5 ML SYR (>=10YO) IM PRN (20:31)
[2020-01-03] MEDS ORDERED: MEASLES,MUMPS&RUBELLA VACC/PF 0.5 ML VIAL SUBCUT PRN (20:31)
[2020-01-03] MEDS ORDERED: OXYCODONE-ACETAMINOPHEN 5-325 MG TABLET PO PRN (20:31)
[2020-01-03] MEDS ORDERED: FENTANYL CITRATE INJ/PF 100 MCG/2 ML AMPUL ONE ×2 (21:30→22:07)
[2020-01-03] MEDS ORDERED: DIPHENHYDRAMINE HCL 50 MG/ML VIAL ONE (22:01)
[2020-01-03] MEDS ORDERED: OXYTOCIN 10 UNIT/ML VIAL ONE (22:07)
[2020-01-03] MEDS ORDERED: ACETAMINOPHEN 1,000 MG/100 ML RTUPB IV ONE (22:08)
[2020-01-03] MEDS ORDERED: ONDANSETRON HCL INJ/PF 4 MG/2 ML SDV ONE (22:08)
[2020-01-03] MEDS ORDERED: OXYTOCIN/0.9 % SODIUM CHLORIDE 30 UNIT/500 ML RTUINJ ONE (23:00)
[2020-01-03] MEDS ORDERED: KETOROLAC TROMETHAMINE INJ/PF 30 MG/1 ML SDV ONE (23:02)
[2020-01-03] MEDS: KETOROLAC TROMETHAMINE INJ/PF 30 MG/1 ML SDV IV SCH (23:05)
--- NOTE | 2020-01-03 23:22 | PDOC DELIVERY SUMMARY ---
Delivery Summary - Maternal Hx : XI Hx Para: IV Hx # Term Pregnancies: 4 Hx # Pregnancies: 0 Hx Total # of Abortions (Sponateous & Elective): 6 Number of Living Children: 4 Gestational Age: 37.5 Risk Factors: Previous - Delivery Pattern: Late Decels - two to three late decels with contractions in triage. Resolved spontaneously and lasted approx 1-1.5 minutes each. Support Person Present: Yes Location: OR : Repeat Placenta: Within Normal Limits Number of Vessels (Cord): 3 Nuchal Cord: No Estimated Blood Loss: 700cc - Medications Type of Anesthesia:: Spinal - Delivery Personnel Release Engineer: RAMÍREZ HUERTA RN: SHERLY MCCARTHY MD: MANI PARIS
--- NOTE | 2020-01-03 23:31 | Operative Report ---
Operative Report DATE OF SURGERY: 01/03/20 PREOPERATIVE DIAGNOSIS: Intrauterine at 37.5 wks EGA. History of dalila or CS x4. Active labor POSTOPERATIVE DIAGNOSIS: Same as above with addition of scar tissue anterior abdominal wall at level of rectus fascia OPERATION: Repeat section SURGEON: MANI PARIS ANESTHESIA: Spinal TISSUE REMOVED OR ALTERED: Placenta COMPLICATIONS: None ESTIMATED BLOOD LOSS: 700 cc INTRAOPERATIVE FINDINGS: Uterus with a 2-3 cm window at prior CS scar. Bilateral fallopian tubes and ovaries appear normal . Viable male delivered from vertex presentation. Clear fluid, large amount PROCEDURE: IV fluids: per anesthesia record Urinary output: 250 cc clear yellow urine in mustafa bag Findings: Uterus with 2-3 cm window in lower uterine segment. Normal bilateral fallopian tubes and ovaries. Placenta delivered spontaneously intact. Viable ma le infant Position: To recovery room in stable condition Description of procedure: The patient was taken to the operating room and general anesthesia was administered and found to be adequate. She was then placed on the OR table in the supine position with a slight leftward tilt. Patient was prepped and draped in usual sterile fashion. Ancef 2 gms was given IV prior to the procedure for infection prophylaxis. Timeout was taken. A Pfannenstiel skin incision was then made approximately 3 cm above the pubic symphysis and carried down to level the rectus fascia. The rectus fascia was then nicked in the midline with a scalpel and the fascial incision was extended laterally with use of curved Olguin scissors. The rectus fascia was then grasped with 2 Kocker clamps elevated and the underlying rectus muscle was dissected off both bluntly and sharply. Scar tissue noted as above. Any bleeding controlled with cautery. The rectus muscles were then split in the midline and the peritoneum was entered. The peritoneal incision was then extended by manually stretching the peritoneum. The bladder blade was positioned. The bladder was noted to be out of harm's way. An Luke retractor was placed. A scalpel was then used in the lower uterine for the hysterotomy, slowly until amniotomy was obtained a large amount of fluid was noted. The uterine incision was then manually stretched. The infant was noted to be in vertex postion -deep in the pelvis. Using a hand deep in pelvis, the head was elevated and brought to the hysterotomy incision. The head then delivered with minmal difficulty. The shoulders and the rest of the body followed immediately. The cord was cut clamped and the was handed off to the nurse awaiting. Infant was crying prior to hand off. The placenta was manually delivered. Using a lap gauze the uterus was cleared of all clots and debris. The uterus was then exteriorized and a bladder blade was repositioned. The uterine incision was then closed with 0 Chromic suture in a running locked fashion. A second layer of the same suture was used in a running locked imbricated fashion. The incision extended toward the cervix on the right: approx 1-2 cm and this was repaired with the hysterotomy incision. The lower uterine incision was quite thin. The uterine incision was inspected and noted to be hemostatic. Retractor was removed. The posterior aspect of the uterus was then inspected and anatomy was seen as above. The uterus was returned to its normal anatomic position within the abdominal cavity. Warm saline irrigation was used to clear all clots and debris from the abdomen. The uterine incision was inspected once more and noted to remain hemostatic. The bladder blade was removed and the peritoneum was closed with 2-0 chromic in a running fashion. The rectus muscles were then reapproximated and the rectus fascia was closed with a #0 looped PDS in a running fashion. The subcutaneous tissue was then inspected and any bleeding was controlled with Bovie electrocautery. The subcutaneous tissue was then closed with 2-0 Plain Gut suture in a running fashion. The skin was then closed with 4-0 Monocryl in a running subcuticular fashion. The skin incision was then clean dried and Dermabond was applied over the skin incision. All instrument sponge and needle counts were correct x3 for the procedure the patient tolerated the procedure well. She will proceed to recovery room in stable condition
[2020-01-04] MEDS: OXYCODONE-ACETAMINOPHEN 5-325 MG TABLET PO PRN ×5 (01:55→20:08)
[2020-01-04] MEDS: KETOROLAC TROMETHAMINE INJ/PF 30 MG/1 ML SDV IV SCH ×2 (05:34→13:55)
[2020-01-04 09:05] LABS: HEMATOCRIT 29.7 % (36.0-47.0); MEAN CORPUSCULAR HEMOGLOBIN 30.2 pg (27.0-33.4); MEAN CORPUSCULAR HGB CONC 34.8 g/dL (32.0-36.0); MEAN CORPUSCULAR VOLUME 87 fl (80-97); PLATELET COUNT 210 10^3/uL (150-450); RED BLOOD COUNT 3.43 10^6/uL (3.72-5.28); WHITE BLOOD COUNT 9.4 10^3/uL (4.0-10.5)
[2020-01-04 09:06] LABS: HEMOGLOBIN 10.3 g/dL (12.0-15.5)
[2020-01-04] MEDS: LORATADINE 10 MG TABLET PO SCH (10:44)
[2020-01-04] MEDS: DOCUSATE SODIUM 100 MG CAPSULE PO SCH ×2 (10:44→18:13)
[2020-01-04] MEDS: PRENATAL VITAMIN W DHA CAPSULE PO SCH (10:44)
--- NOTE | 2020-01-04 11:06 | PDOC PROGRESS REPORT ---
Subjective-OB Progress Note for:: 01/04/20 Subjective: 34yo G11 now P4 s/p repeat ppd 1. Pt ambulating and voiding without difficulty, had bowel movement this am. Pt reports pain well controlled by medication no concerns today. Physical Exam (OB) Vital Signs: Temp Pulse Resp BP Pulse Ox 97.7 F 91 16 123/76 99 01/04/20 09:59 01/04/20 07:38 01/04/20 07:38 01/04/20 07:38 01/04/20 07:38 Intake & Output 01/03/20 01/04/20 01/05/20 06:59 06:59 06:59 Intake Total 480 Output Total 1200 500 Balance -1200 -20 Weight 85.1 kg - General General Appearance: Appears well In distress: None - PIH/Pre-Eclampsia Headache: Absent Epigastric Pain: No Visual Changes: No - Dressing Removed: No - Maternal Morbidity 59. Maternal Morbidity (serious complications experinced by the mother associated with labor and delivery: None of the above - Lochia Lochia Amount: Scant < 10 ml Lochia Color: Rubra/Red - Abdomen Fundal Description: Firm, Midline Fundal Height: u/u - u/2 - Respiratory Respiratory Status: No respiratory distress - Extremities Upper extremity: Normal inspection Lower extremities: Normal inspection - Neurological Cognition: Normal Orientation: AAOx4 - Psychological Associated symptoms: Normal affect, Normal mood Objective-Diagnostic Laboratory: 01/04/20 08:29 01/03/20 01/03/20 01/03/20 18:27 19:55 19:55 WBC 9.9 RBC 4.31 Hgb 12.9 Hct 37.4 MCV 87 MCH 29.8 MCHC 34.4 RDW 16.0 H Plt Count 259 Seg Neutrophils % 65.9 Urine Color STRAW Urine Appearance CLEAR Urine pH 7.0 Ur Specific [place] 1.004 Urine Protein NEGATIVE Urine Glucose (UA) NEGATIVE Urine Ketones NEGATIVE Urine Blood NEGATIVE Urine Nitrite NEGATIVE Ur Leukocyte Esterase NEGATIVE Blood Type O NEGATIVE Antibody Screen POSITIVE 01/04/20 08:29 WBC 9.4 RBC 3.43 L Hgb 10.3 L D Hct 29.7 L MCV 87 MCH 30.2 MCHC 34.8 RDW 16.0 H Plt Count 210 Seg Neutrophils % Urine Color Urine Appearance Urine pH Ur Specific [place] Urine Protein Urine Glucose (UA) Urine Ketones Urine Blood Urine Nitrite Ur Leukocyte Esterase Blood Type Antibody Screen Assessment and Plan(PN) - Assessment and Plan (1) Acute blood loss anemia Is this a current diagnosis for this admission?: Yes Plan: increase dietary iron and FeSO4 bid (2) Gestational diabetes mellitus (GDM) controlled on oral hypoglycemic drug Qualifiers: Trimester: third trimester Qualified Code(s): O24.415 - Gestational diabetes mellitus in , controlled by oral hypoglycemic drugs Is this a current diagnosis for this admission?: Yes Plan: fasting bs at pp visit, encouraged to continue to follow GDM diet (3) Status post repeat low transverse section Is this a current diagnosis for this admission?: Yes Plan: routine pp care - Time Spent with Patient Time with patient: Less than 15 minutes Medications reviewed and adjusted accordingly: Yes - Disposition Anticipated Discharge Disposition: Home, Self Care Anticipated Discharge Timeframe: within 24 hours
[2020-01-04] MEDS: CLINDAMYCIN 900 MG/D5W RTU 900 MG/50 ML RTUPB IV SCH ×2 (17:25→21:48)
[2020-01-04] MEDS: IBUPROFEN 800 MG TABLET PO SCH (21:51)
[2020-01-05] MEDS: CLINDAMYCIN 900 MG/D5W RTU 900 MG/50 ML RTUPB IV SCH ×2 (03:27→12:51)
[2020-01-05] MEDS: IBUPROFEN 800 MG TABLET PO SCH ×2 (05:09→13:15)
--- NOTE | 2020-01-05 08:45 | PDOC PROGRESS REPORT ---
Subjective-OB Progress Note for:: 01/05/20 Subjective: Ready for discharge. Physical Exam (OB) Vital Signs: Temp Pulse Resp BP Pulse Ox 98.1 F 97 18 116/72 96 01/05/20 04:44 01/05/20 04:44 01/05/20 04:44 01/05/20 04:44 01/05/20 04:44 Intake & Output 01/04/20 01/05/20 01/06/20 06:59 06:59 06:59 Intake Total 2260 Output Total 1200 600 Balance -1200 1660 Weight 85.1 kg - PIH/Pre-Eclampsia Headache: Absent Epigastric Pain: No Visual Changes: No - Dressing Removed: No Incision: Well Approximated Closure Type: Surgical Glue - Maternal Morbidity 59. Maternal Morbidity (serious complications experinced by the mother associated with labor and delivery: None of the above - Lochia Lochia Amount: Scant < 10 ml Lochia Color: Serosa/Brown - Abdomen Description: Soft Hernia Present: No Bowel Sounds: Normoactive Flatus Presence: Present Stool: No Fundal Description: Firm, Midline Fundal Height: u/u - u/2 Objective-Diagnostic Laboratory: 01/04/20 08:29 01/04/20 08:29 WBC 9.4 RBC 3.43 L Hgb 10.3 L D Hct 29.7 L MCV 87 MCH 30.2 MCHC 34.8 RDW 16.0 H Plt Count 210 Assessment and Plan(PN) - Time Spent with Patient Time with patient: 15-25 minutes Smoking Education Provided: Other - N Medications reviewed and adjusted accordingly: Yes - Disposition Anticipated Discharge Disposition: Home, Self Care Anticipated Discharge Timeframe: within 24 hours
--- NOTE | 2020-01-05 09:03 | PDOC DISCHARGE SUMMARY ---
Impression - Admit/DC Date/PCP Admission Date/Primary Care Provider: 01/03/20 19:30 MANI PARIS MD Discharge Date: 01/05/20 - Discharge Diagnosis (1) Acute blood loss anemia Is this a current diagnosis for this admission?: Yes (2) Gestational diabetes mellitus (GDM) controlled on oral hypoglycemic drug Is this a current diagnosis for this admission?: Yes (3) Status post repeat low transverse section Is this a current diagnosis for this admission?: Yes (4) Gestational diabetes mellitus (GDM) affecting Is this a current diagnosis for this admission?: Yes - Additional Information Resuscitation Status: Full Code Discharge Diet: Regular Discharge Activity: Activity As Tolerated, Balance Activity w/Rest, No Lifting Over 10 Pounds, No Lifting/Push/Pulling, Pelvic Rest, Slowly Increase Activity, No tub bath Referrals: MANI PARIS MD [Primary Care Provider] - Prescriptions: Oxycodone HCl/Acetaminophen [Percocet 5-325 mg Tablet] 1 tab PO Q4HP PRN #20 tablet PRN Reason: Docusate Sodium [Colace 100 mg Capsule] 100 mg PO BID #30 capsule Ibuprofen [Motrin 800 mg Tablet] 800 mg PO Q8 #30 tablet Home Medications: 95/Iron Fum/Folic/Dha [ + Dha Combo Pack] 1 each PO DAILY 10/26/19 Loratadine [Claritin] 10 mg PO DAILY 12/12/19 Docusate Sodium [Colace 100 mg Capsule] 100 mg PO BID #30 capsule 01/05/20 Ibuprofen [Motrin 800 mg Tablet] 800 mg PO Q8 #30 tablet 01/05/20 Oxycodone HCl/Acetaminophen [Percocet 5-325 mg Tablet] 1 tab PO Q4HP PRN #20 tablet 01/05/20 HPI Gestational Age: 37.5 wks Reason(s) for Admission: Onset of Labor Procedures: Ultrasound Intrapartum Procedure(s): : Low Cervical, Transverse Hospital Course 59. Maternal Morbidity (serious complications experinced by the mother assoc iated with labor and delivery: None of the above Results Laboratory Results: WBC 9.4 10^3/uL (4.0-10.5) 01/04/20 08:29 RBC 3.43 10^6/uL (3.72-5.28) L 01/04/20 08:29 Hgb 10.3 g/dL (12.0-15.5) L D 01/04/20 08:29 Hct 29.7 % (36.0-47.0) L 01/04/20 08:29 MCV 87 fl (80-97) 01/04/20 08:29 MCH 30.2 pg (27.0-33.4) 01/04/20 08:29 MCHC 34.8 g/dL (32.0-36.0) 01/04/20 08:29 RDW 16.0 % (11.5-14.0) H 01/04/20 08:29 Plt Count 210 10^3/uL (150-450) 01/04/20 08:29 Lymph % (Auto) 25.2 % (13-45) 01/03/20 19:55 [place] % (Auto) 6.4 % (3-13) 01/03/20 19:55 Eos % (Auto) 2.2 % (0-6) 01/03/20 19:55 Baso % (Auto) 0.3 % (0-2) 01/03/20 19:55 Absolute Neuts (auto) 6.5 10^3/uL (1.7-8.2) 01/03/20 19:55 Absolute Lymphs (auto) 2.5 10^3/uL (0.5-4.7) 01/03/20 19:55 Absolute Monos (auto) 0.6 10^3/uL (0.1-1.4) 01/03/20 19:55 Absolute Eos (auto) 0.2 10^3/uL (0.0-0.6) 01/03/20 19:55 Absolute Basos (auto) 0.0 10^3/uL (0.0-0.2) 01/03/20 19:55 Seg Neutrophils % 65.9 % (42-78) 01/03/20 19:55 Urine Color STRAW 01/03/20 18:27 Urine Appearance CLEAR 01/03/20 18:27 Urine pH 7.0 (5.0-9.0) 01/03/20 18:27 Ur Specific [place] 1.004 01/03/20 18:27 Urine Protein NEGATIVE mg/dL (NEGATIVE) 01/03/20 18:27 Urine Glucose (UA) NEGATIVE mg/dL (NEGATIVE) 01/03/20 18:27 Urine Ketones NEGATIVE mg/dL (NEGATIVE) 01/03/20 18:27 Urine Blood NEGATIVE (NEGATIVE) 01/03/20 18:27 Urine Nitrite NEGATIVE (NEGATIVE) 01/03/20 18:27 Urine Bilirubin NEGATIVE (NEGATIVE) 01/03/20 18:27 Urine Urobilinogen NEGATIVE mg/dL (<2.0) 01/03/20 18:27 Ur Leukocyte Esterase NEGATIVE (NEGATIVE) 01/03/20 18:27 Urine Ascorbic Acid NEGATIVE (NEGATIVE) 01/03/20 18:27 Urine Opiates Screen NEGATIVE 01/03/20 18:27 Urine Methadone Screen NEGATIVE 01/03/20 18:27 Ur Barbiturates Screen NEGATIVE 01/03/20 18:27 Ur Phencyclidine Scrn NEGATIVE 01/03/20 18:27 Ur Amphetamines Screen NEGATIVE 01/03/20 18:27 U Benzodiazepines Scrn NEGATIVE 01/03/20 18:27 Urine Cocaine Screen NEGATIVE 01/03/20 18:27 U Marijuana (THC) Screen NEGATIVE 01/03/20 18:27 RPR NONREACTIVE (NONREACTIVE) 01/03/20 19:55 Blood Type O NEGATIVE 01/03/20 19:55 Antibody Screen POSITIVE 01/03/20 19:55 Antibody Identification RHOGAM INDUCED ANTI-D 01/03/20 19:55 Plan Plan of Treatment: Follow up at [facility] in 1 wk. Time Spent: Greater than 30 Minutes
[2020-01-05] MEDS: DOCUSATE SODIUM 100 MG CAPSULE PO SCH (10:02)
[2020-01-05] MEDS: PRENATAL VITAMIN W DHA CAPSULE PO SCH (10:02)
[2020-01-05] MEDS: LORATADINE 10 MG TABLET PO SCH (10:02)
[2020-01-05 10:22] VITALS: BP 114/62
[2020-01-05] MEDS: OXYCODONE-ACETAMINOPHEN 5-325 MG TABLET PO PRN (10:41)
== END 2020-01-05 16:20 | disposition home or self-care (01) | DRG 788 ==
LOC: LC 18:20 → LR 19:30 → 2N 23:28
PROVIDERS: ADMIT Obstetrics & Gynecology; ATTEND Obstetrics & Gynecology
PROC: 10D00Z1 Extraction of Products of Conception, Low, Open Approach (ICD-10-PCS; principal; 2020-01-03)
DX: O24.425 Gestational diabetes mellitus in childbirth, controlled by oral hypoglycemic drugs (principal); O34.211 Maternal care for low transverse scar from previous cesarean delivery; N85.8 Other specified noninflammatory disorders of uterus; O99.013 Anemia complicating pregnancy, third trimester; Z3A.37 37 weeks gestation of pregnancy; Z37.0 Single live birth; O36.8330 Maternal care for abnormalities of the fetal heart rate or rhythm, third trimester, not applicable or unspecified; Z88.0 Allergy status to penicillin; Z91.040 Latex allergy status; Z91.048 Other nonmedicinal substance allergy status; Z87.891 Personal history of nicotine dependence
CPT/HCPCS: 1961; 36415; 80307; 81005; 85025; 85027; 86592; 86850; 86870; 86900; 86901; 94799; 99140; J0131; J1200; J1885; J2405; J2590; J3010; J3490; J7120

== ENCOUNTER 2020-05-24 14:20 | Emergency (ER) | payer BC, MEDICAID ==
--- NOTE | 2020-05-24 15:28 | ER Document Report ---
ED Medical Screen (RME) - General Chief Complaint: Breathing Difficulty Stated Complaint: DIFFICULTY BREATHING Primary Care Provider: MANI PARIS MD [Primary Care Provider] - Follow up as needed TRAVEL OUTSIDE OF THE [place] IN LAST 30 DAYS: No - HPI Notes: 05/24/20 15:21 Rapid Medical Exam HPI: 34yo c/o parasternal chest pain and sob since being diagnosed w/ covid 1 month ago. pt says the chest pain has worsened over the past few days. no cough or hemoptysis or leg swelling. using inhaler w/ relief for about an hour or so. no hx of dvt/pe. denies fevers Physical Exam: GENERAL: Well-appearing, well-nourished and mild distress r/t dyspnea HEAD: Atraumatic, normocephalic. ENT: Moist mucous membranes. RESP: tachypnea. NEURO: No focal neurological deficits. Moves all extremities spontaneously and on command. My involvement in this patients care was limited to a rapid initial assessment. A comprehensive ED assessment and evaluation of the patient, analysis of test results, treatment, and completion of the medical decision making process will be performed by other ER providers. - Related Data Allergies/Adverse Reactions: amoxicillin trihydrate [From Augmentin] Allergy (Severe, Verified 05/24/20 15:20) rash erythromycin base [Erythromycin Base] Allergy (Severe, Verified 05/24/20 15:20) breathing latex [Latex] Allergy (Severe, Verified 05/24/20 15:20) rash Past Medical History - Past Medical History Cardiac Medical History: Denies: Hx Coronary Artery Disease, Hx Heart Attack, Hx Hypertension Pulmonary Medical History: Reports: Hx Asthma - INDUCED BY SPORTS, Hx Bronchitis Denies: Hx COPD, Hx Pneumonia Neurological Medical History: Denies: Hx Cerebrovascular Accident, Hx Seizures Endocrine Medical History: Reports: Hx Diabetes Mellitus Type 2 - Gestational diabetes Renal/ Medical History: Reports: Hx Ectopic - 2015, Hx Pelvic Inflammatory Disease. Denies: Hx Peritoneal Dialysis Musculoskeltal Medical History: Denies Hx Arthritis Past Surgical History: Reports: Hx Section - x2, Hx Tubal Ligation. Denies: Hx Hysterectomy, Hx Pacemaker - Immunizations Hx Diphtheria, Pertussis, Tetanus Vaccination: No Physical Exam - Vital signs Vitals: Temp Pulse Resp BP Pulse Ox 98.5 F 114 H 20 138/93 H 100 05/24/20 14:26 05/24/20 14:05/24/20 14:05/24/20 14:05/24/20 14:26 Course - Vital Signs Vital signs: Temp Pulse Resp BP Pulse Ox 98.5 F 114 H 20 138/93 H 100 05/24/20 14:26 05/24/20 14:05/24/20 14:05/24/20 14:05/24/20 14:26 Doctor's Discharge - Discharge Referrals: MANI PARIS MD [Primary Care Provider] - Follow up as needed
--- NOTE | 2020-05-24 15:57 | RADIOLOGY REPORT (SQ) ---
EXAM DESCRIPTION: CHEST SINGLE VIEW IMAGES COMPLETED DATE/TIME: 05/24/2020 3:49 pm REASON FOR STUDY: chest pain, sob COMPARISON: None. EXAM PARAMETERS: NUMBER OF VIEWS: One view. TECHNIQUE: Single frontal radiographic view of the chest acquired. RADIATION DOSE: NA LIMITATIONS: None. FINDINGS: LUNGS AND PLEURA: No opacities, masses or pneumothorax. No pleural effusion. MEDIASTINUM AND HILAR STRUCTURES: No masses. Contour normal. HEART AND VASCULAR STRUCTURES: Heart normal in size. Normal vasculature. BONES: No acute findings. HARDWARE: None in the chest. OTHER: No other significant finding. IMPRESSION: NO ACUTE RADIOGRAPHIC FINDING IN THE CHEST. TECHNICAL DOCUMENTATION: JOB ID: [id number] 2010 [employer]- All Rights Reserved Reading location - IP/workstation name: [email or web address]
[2020-05-24] MEDS ORDERED: NORMAL SALINE 1000 ML 1,000 ML IV ONE (18:05)
--- NOTE | 2020-05-24 18:29 | ER Document Report ---
Entered by LIBIA DENISE SCRIBE 05/24/201809 Acting as scribe for:CARLOS MARTINEZ MD ED General - General Chief Complaint: Breathing Difficulty Stated Complaint: DIFFICULTY BREATHING Time Seen by Provider: 05/24/20 17:52 Primary Care Provider: MANI PARIS MD [ACTIVE PROVISIONAL STAFF] - Follow up as needed Mode of Arrival: Ambulatory Information source: Patient Notes: This 34-year-old female patient presents to the emergency department today with complaints of chest pain for the last week with shortness of breath for the last 3 weeks. Patient states she was diagnosed with COVID-19 over [place], she was released from quarantine on May 04 or . She reports her chest pain is reproducible with movements and breathing. She denies any chills or fever. TRAVEL OUTSIDE OF THE [place] IN LAST 30 DAYS: No - Related Data Allergies/Adverse Reactions: amoxicillin trihydrate [From Augmentin] Allergy (Severe, Verified 05/24/20 15:20) rash erythromycin base [Erythromycin Base] Allergy (Severe, Verified 05/24/20 15:20) breathing latex [Latex] Allergy (Severe, Verified 05/24/20 15:20) rash Home Medications: IBUPROFEN. ZYRTEC Past Medical History - General Information source: Patient - Social History Smoking Status: Current Every Day Smoker Cigarette use (# per day): No - vape Frequency of alcohol use: None Drug Abuse: None Lives with: Family Family History: Reviewed & Not Pertinent, Hypertension Patient has homicidal ideation: No Pulmonary Medical History: Reports: Hx Asthma - INDUCED BY SPORTS, Hx Bronchitis Endocrine Medical History: Reports: Hx Diabetes Mellitus Type 2 - Gestational diabetes Renal/ Medical History: Reports: Hx Ectopic - 2015, Hx Pelvic Inflammatory Disease Past Surgical History: Reports: Hx Section - x2, Hx Tubal Ligation - Immunizations Hx Diphtheria, Pertussis, Tetanus Vaccination: No Review of Systems - Review of Systems Constitutional: denies: Chills, Fever EENT: No symptoms reported Cardiovascular: See HPI, Chest pain Respiratory: See HPI, Short of breath Gastrointestinal: No symptoms reported Genitourinary: No symptoms reported Female Genitourinary: No symptoms reported Musculoskeletal: No symptoms reported Skin: No symptoms reported Hematologic/Lymphatic: No symptoms reported Neurological/Psychological: No symptoms reported -: Yes All other systems reviewed and negative Physical Exam - Vital signs Vitals: Temp Pulse Resp BP Pulse Ox 98.5 F 114 H 20 138/93 H 100 05/24/20 14:26 05/24/20 14:26 05/24/20 14:26 05/24/20 14:26 05/24/20 14:26 - Notes Notes: Physical Exam: General: Alert, appears dyspneic. HEENT: Normocephalic. Atraumatic. PERRL. Extraocular movements intact. Oropharynx clear. Neck: Supple. Non-tender. Respiratory: Mild to moderate respiratory distress. Tachypneic. Hyperventilating. Clear to auscultation bilaterally. The sternum in the parasternal chest wall is very tender to palpate. Cardiovascular: Tachycardic, regular rhythm. Abdominal: Normal Inspection. Non-tender. No distension. Normal Bowel Sounds. Back: No gross abnormalities. Extremities: Moves all four extremities. Upper extremities: Normal inspection. Normal ROM. Lower extremities: Normal inspection. No edema. Normal ROM. Neurological: Normal cognition. AAOx4. Normal speech. Psychological: Normal affect. Normal Mood. Skin: Warm. Dry. Normal color. Course - Re-evaluation Re-evalutation: 05/24/20 19:35 After Ativan 0.5 mg IV, the patient's reports that her breathing does feel much better. She is not breathing nearly as quick. Her heart rate is down from 115- 100. D-dimer is less than 0.5, so pulmonary embolus is unlikely part of the diagnosis. Also, when she was initially seen the pulse oximetry readings were running in the 88 to 89% range, but after a probe was changed she got a good waveform with 100% oxygen saturation. 05/24/20 20:30 Room air ABG shows a pH of 7.58, PCO2 of 25, PO2 of 114.7 - Vital Signs Vital signs: Temp Pulse Resp BP Pulse Ox 98.5 F 114 H 19 124/87 H 99 05/24/20 20:10 05/24/20 14:26 05/24/20 19:00 05/24/20 19:00 05/24/20 19:00 - Laboratory Results Result Diagrams: 05/24/20 18:10 05/24/20 18:10 Laboratory Results Interpreted: 05/24/20 05/24/20 05/24/20 18:10 18:10 18:40 WBC 11.8 H RDW 14.4 H Carbonic Acid 0.76 L ABG pH 7.58 H ABG pCO2 25.1 L ABG pO2 114.7 H ABG O2 Saturation 98.8 H Total Protein 8.5 H Urine Protein Ur Leukocyte Esterase 05/24/20 20:05 WBC RDW Carbonic Acid ABG pH ABG pCO2 ABG pO2 ABG O2 Saturation Total Protein Urine Protein 30 H Ur Leukocyte Esterase TRACE H Critical Laboratory Results Reviewed: No Critical Results - Radiology Results Radiology Results Interpreted: 05/24/20 18:54 Chest x-ray does not show acute radiographic findings. Critical Radiology Results Reviewed: No Critical Results - EKG Interpretation by Me EKG shows normal: Sinus rhythm, [place], Intervals, QRS Complexes. abnormal: ST-T Waves - Borderline inferior T abnormalities Rate: Tachycardia - 115 When compared to previous EKG there are: No significant change Discharge - Discharge Clinical Impression: Anterior chest wall pain, Hyperventilation Condition: Stable Disposition: HOME, SELF-CARE Additional Instructions: Chest Wall Pain: Your chest pain has been diagnosed as coming from the chest wall. This is often caused by straining the muscles or joints in the chest during physical activity, direct trauma, coughing, or vigorous vomiting. Persons with arthritis are especially prone to this type of pain, due to inflammation of the cartilage joints near the breast bone. Occasionally, no cause can be found. Rest from strenuous physical activity. This kind of chest pain is usually made worse by movement of the chest. Depending on the symptoms, we may prescribe medicine for pain, muscle relaxation, and antiinflammatory effects. If the pain is new, and seems to be due to muscle strain, cold packs can help. Otherwise, apply gentle warmth to the painful area for 15 minutes every hour or two. You should contact the doctor immediately if things change. Further evaluati on is needed if you develop a fever or cough, if the nature of the pain changes, or if you become short of breath. Hyperventilation: You have had an episode of hyperventilation. The symptoms occur because rapid breathing changes the body's chemical balance. Hyperventilation causes dizziness, numbness (particularly of the hands and face), chest pain, muscle spasms, and anxiety. Once an episode begins, it's extremely difficult to control the "need" to breathe rapidly. Hyperventilation may be provoked by drug effects, nausea, or illness, but is often due to anxiety. If no specific cause for the problem was found, treatment for anxiety may be necessary. Once the chemical changes have occurred, the hyperventilation is likely to recur. If you feel the symptoms again, rebreathe your air with a paper bag for several minutes. Sometimes hyperventilation is a symptom of an underlying metabolic or lung problem. If new symptoms develop (such as productive cough, fever, or chest pain), or if you are unable to get relief with rebreathing your exhaled air, call the physician. Take Tylenol and ibuprofen or Aleve for the next 1 to 2 weeks to help your anterior chest wall discomfort. Moist heat to the chest wall frequently helps the pain. Follow-up with your primary care provider if you are not improving over the next few days. RETURN TO THE EMERGENCY ROOM IF ANY NEW OR WORSENING SYMPTOMS. Referrals: MANI PARIS MD [ACTIVE PROVISIONAL STAFF] - Follow up as needed I personally performed the services described in the documentation, reviewed and edited the documentation which was dictated to the scribe in my presence, and it accurately records my words and actions.
[2020-05-24 18:30] LABS: ABSOLUTE BASOPHILS # (AUTO) 0.1 10^3/uL (0.0-0.2); ABSOLUTE EOSINOPHILS # (AUTO) 0.4 10^3/uL (0.0-0.6); ABSOLUTE LYMPHOCYTES (AUTO) 3.5 10^3/uL (0.5-4.7); ABSOLUTE MONOCYTES (AUTO) 0.7 10^3/uL (0.1-1.4); ABSOLUTE NEUT (AUTO) 7.1 10^3/uL (1.7-8.2); BASOPHILS % (AUTO) 1.1 % (0-2); HEMATOCRIT 41.8 % (36.0-47.0); HEMOGLOBIN 14.7 g/dL (12.0-15.5); LYMPHOCYTES % (AUTO) 29.6 % (13-45); MEAN CORPUSCULAR HEMOGLOBIN 29.6 pg (27.0-33.4); MEAN CORPUSCULAR HGB CONC 35.1 g/dL (32.0-36.0); MEAN CORPUSCULAR VOLUME 84 fl (80-97); MONOCYTES % (AUTO) 6.2 % (3-13); PLATELET COUNT 325 10^3/uL (150-450); RED BLOOD COUNT 4.95 10^6/uL (3.72-5.28); RED CELL DISTRIBUTION WIDTH 14.4 % (11.5-14.0); SEGMENTED NEUTROPHILS % (AUTO) 60.1 % (42-78); TOTAL CELLS COUNTED % (AUTO) 100 %; WHITE BLOOD COUNT 11.8 10^3/uL (4.0-10.5)
[2020-05-24] MEDS ORDERED: LORAZEPAM INJ 2 MG/1 ML VIAL IV ONE ×2 (18:33→19:34)
[2020-05-24 18:36] LABS: INTERNATIONAL RATION (INR) 0.93; PROTHROMBIN TIME 12.7 SEC (11.4-15.4)
[2020-05-24 18:38] LABS: D-DIMER 0.42 ug/mL (0.00-0.50)
[2020-05-24 18:49] LABS: ALBUMIN 4.9 g/dL (3.5-5.0); ALKALINE PHOSPHATASE 104 U/L (38-126); ANION GAP 11 (5-19); ASPARTATE AMINO TRANSFERASE 29 U/L (14-36); BILIRUBIN,DIRECT 0.2 mg/dL (0.0-0.4); BILIRUBIN,TOTAL 0.6 mg/dL (0.2-1.3); BLOOD UREA NITROGEN 13 mg/dL (7-20); CALCIUM 10.1 mg/dL (8.4-10.2); CARBON DIOXIDE 25 mmol/L (22-30); CHLORIDE 104 mmol/L (98-107); GLUCOSE 98 mg/dL (75-110); POTASSIUM 3.8 mmol/L (3.6-5.0); TOTAL PROTEIN 8.5 g/dL (6.3-8.2)
[2020-05-24] MEDS ORDERED: KETOROLAC TROMETHAMINE INJ/PF 30 MG/1 ML SDV IV ONE (19:34)
[2020-05-24] MEDS ORDERED: DEXTROSE 5%-LACTATED RINGERS 1,000 ML IV ONE (19:37)
--- NOTE | 2020-05-24 20:00 | EKG REPORT ---
SEVERITY:- BORDERLINE ECG - SINUS TACHYCARDIA BORDERLINE T ABNORMALITIES, INFERIOR LEADS : Confirmed by: Grey Tidwell MD 24-May-2020 19:58:10
[2020-05-24 20:11] LABS: ARTERIAL BLOOD BASE EXCESS 2.5 mmol/L; ARTERIAL BLOOD FIO2 21%; ARTERIAL BLOOD H2CO3 0.76 mmol/L (1.05-1.35); ARTERIAL BLOOD HCO3 22.8 mmol/L (20-24); ARTERIAL BLOOD O2 SATURATION 98.8 % (94-98); ARTERIAL BLOOD PCO2 25.1 mmHg (35-45); ARTERIAL BLOOD PH 7.58 (7.35-7.45); ARTERIAL BLOOD PO2 114.7 mmHg (80-100); ARTERIAL BLOOD TOTAL CO2 23.6 mmol/L (21-25)
[2020-05-24 20:26] LABS: APPEARANCE,URINE SLIGHTLY-CLOUDY; BILIRUBIN,URINE NEGATIVE (NEGATIVE); COLOR,URINE YELLOW; GLUCOSE, URINE NEGATIVE (NEGATIVE); KETONES,URINE NEGATIVE (NEGATIVE); LEUKOCYTE ESTERASE,URINE TRACE (NEGATIVE); NITRITE,URINE NEGATIVE (NEGATIVE); PROTEIN,URINE 30 mg/dL (NEGATIVE); URINE SPECIFIC GRAVITY 1.023; UROBILINOGEN,URINE NEGATIVE mg/dL (<2.0)
[2020-05-24 22:21] VITALS: BP 119/87
== END 2020-05-24 22:20 | disposition home or self-care (01) ==
LOC: ER 14:20
DX: R07.89 Other chest pain (principal); R06.4 Hyperventilation; R06.02 Shortness of breath; R00.0 Tachycardia, unspecified; Z88.1 Allergy status to other antibiotic agents; Z88.8 Allergy status to other drugs, medicaments and biological substances; Z79.899 Other long term (current) drug therapy; F17.290 Nicotine dependence, other tobacco product, uncomplicated; J45.909 Unspecified asthma, uncomplicated; E11.9 Type 2 diabetes mellitus without complications
CPT/HCPCS: 93005; 96376; 99285; 96361; 96374; 96375; 36415; 82803; 82550; 85025; 85610; 80053; 81001; 84484; 85379; 71045; 93010; J1885; J2060; J7121; J7030